=== PATIENT | male | born 1975 | race Caucasian/White ===

== ENCOUNTER 2019-02-25 23:51 | Emergency (ER) | payer OTHER ==
[~2019-02-25] VITALS: Ht 193 cm; Wt 108.9 kg
[2019-02-26 00:05] VITALS: BP 154/90
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
--- NOTE | 2019-02-26 00:05 | NUR ---
TO BED # 07 AMBULATORY
--- NOTE | 2019-02-26 00:19 | NUR ---
PT TAKEN TO XRAY
--- NOTE | 2019-02-26 00:25 | NUR ---
PT RETURN FROM XRAY
--- NOTE | 2019-02-26 00:35 | NUR ---
REPORT GIVEN FROM GELA COOK.
--- NOTE | 2019-02-26 00:35 | NUR ---
PT TAKEN TO XRAY
--- NOTE | 2019-02-26 00:41 | NUR ---
PT RETURNED FROM XRAY
--- NOTE | 2019-02-26 00:41 | NUR ---
Arianne sofia in ED - 02/26/19 at 0041 by CORDELL PT RETURN FROM CT
--- NOTE | 2019-02-26 00:41 | NUR ---
Arianne sofia in ED - 02/26/19 at 0043 by CORDELL PT RETURN FROM XRAY
--- NOTE | 2019-02-26 00:42 | NUR ---
DR VILLASEÑOR AT BEDSIDE
[2019-02-26] MEDS ORDERED: KETOROLAC 60 MG/2 ML VIAL IM ONE (00:45)
--- NOTE | 2019-02-26 01:14 | NUR ---
PAIN REEVALUATED AFTER TRAMADOL IM GIVEN. PT PAIN REDUCED FROM 8/10 TO 7/10 IN L SHOULDER. SLING PUT IN PLACE. PT RESTING AT BEDSIDE. RESPIRATIONS ARE EVEN AND UNLABORED. SKIN WARM AND DRY TO TOUCH. AT BEDSDIE.
[2019-02-26 01:17] VITALS: BP 152/87
--- NOTE | 2019-02-26 01:18 | NUR ---
Patient discharged with v/s stable. Written and verbal after care instructions given and explained. Patient alert, oriented and verbalized understanding of instructions. Ambulatory with steady gait. All questions addressed prior to discharge. ID band removed. Patient advised to follow up with PMD. Rx of MOTRIN 800MG, TRAMADOL 50MG given. Patient educated on indication of medication including possible reaction and side effects. Opportunity to ask questions provided and answered.
== END 2019-02-26 01:18 | disposition home or self-care (01) ==
LOC: MED 23:51
DX: S42.012A Anterior displaced fracture of sternal end of left clavicle, initial encounter for closed fracture (principal); R03.0 Elevated blood-pressure reading, without diagnosis of hypertension; V87.8XXA Person injured in other specified noncollision transport accidents involving motor vehicle (traffic), initial encounter; Y93.55 Activity, bike riding; Y92.89 Other specified places as the place of occurrence of the external cause; Y99.8 Other external cause status
CPT/HCPCS: 73000; 73030; 96372; 99283; J1885

== ENCOUNTER 2019-03-29 11:53 | Emergency (ER) | payer OTHER ==
[~2019-03-29] VITALS: Ht 193 cm; Wt 106.6 kg
[2019-03-29 12:58] VITALS: BP 120/76
--- NOTE | 2019-03-29 13:07 | NUR ---
WAIT AT LOBBY.
--- NOTE | 2019-03-29 14:10 | NUR ---
1ST CALL IN LOBBY
--- NOTE | 2019-03-29 14:48 | NUR ---
TO ED 07, AMBULATORY.
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
[2019-03-29] MEDS ORDERED: HYDROcodone/APAP 7.5/325 MG 1 TAB PO ONE (15:25)
[2019-03-29] MEDS ORDERED: KETOROLAC 60 MG/2 ML VIAL IM ONE (15:25)
--- NOTE | 2019-03-29 15:38 | NUR ---
GAVE MEDS PER MD ORDERS
--- NOTE | 2019-03-29 15:48 | NUR ---
PT STATES THAT PAIN HAS DECREASED SINCE PAIN MEDS HAVE BEEN GIVEN
[2019-03-29 15:52] VITALS: BP 120/76
--- NOTE | 2019-03-29 15:53 | NUR ---
Patient discharged with v/s stable. Written and verbal after care instructions given and explained. Patient alert, oriented and verbalized understanding of instructions. Ambulatory with steady gait. All questions addressed prior to discharge. ID band removed. Patient advised to follow up with PMD. Rx of TRAMADOL AND IBUPROFEN given. Patient educated on indication of medication including possible reaction and side effects. Opportunity to ask questions provided and answered.
== END 2019-03-29 15:53 | disposition home or self-care (01) ==
LOC: MED 11:53
DX: S22.32XA Fracture of one rib, left side, initial encounter for closed fracture (principal); F17.210 Nicotine dependence, cigarettes, uncomplicated; X58.XXXA Exposure to other specified factors, initial encounter; Y93.89 Activity, other specified; Y92.89 Other specified places as the place of occurrence of the external cause; Y99.8 Other external cause status
CPT/HCPCS: 71100; 73030; 96372; 99283; J1885

== ENCOUNTER 2022-10-30 00:45 | Emergency (ER) | payer MEDICAID, OTHER ==
[~2022-10-30] VITALS: Ht 193 cm; Wt 128.8 kg
[2022-10-30 01:34] VITALS: BP 139/86; PULSE 100; RESP 16; TEMP 98.2; O2SAT 96
[2022-10-30] MEDS ORDERED: AMOXIL/CLAVULANATE 875/125 MG 1 TAB PO ONE (03:20)
[2022-10-30] MEDS ORDERED: ACET-10509 PO (03:33)
[2022-10-30] MEDS ORDERED: CHLO473S62 PO (03:33)
[2022-10-30] MEDS ORDERED: AMOX1TAB8 PO (03:33)
[2022-10-30] MEDS ORDERED: IBUP-2213 PO (03:33)
[2022-10-30 03:55] VITALS: BP 139/86; PULSE 100; RESP 16; TEMP 98.2; O2SAT 96
== END 2022-10-30 03:55 | disposition home or self-care (01) ==
LOC: MED 00:45
DX: K04.7 Periapical abscess without sinus (principal); F17.290 Nicotine dependence, other tobacco product, uncomplicated; Z79.899 Other long term (current) drug therapy
CPT/HCPCS: 99283

== ENCOUNTER 2023-03-12 15:20 | Emergency (ER) | payer MEDICAID ==
[~2023-03-12] VITALS: Ht 193 cm; Wt 117.9 kg
[~2023-03-12 15:20] MED LIST: ACET-10509 PO; AMOX1TAB8 PO; CHLO473S62 PO; IBUP-2213 PO
[2023-03-12 15:27] VITALS: BP 119/82; PULSE 96; RESP 18; TEMP 98.5; O2SAT 96
[2023-03-12] MEDS ORDERED: AMOX1TAB8 PO (15:44)
[2023-03-12] MEDS ORDERED: ACET-8905 PO (15:45)
[2023-03-12] MEDS ORDERED: BENZ20GE11 MM (15:45)
[2023-03-12] MEDS ORDERED: CHLO473S62 PO (15:45)
== END 2023-03-12 16:02 | disposition home or self-care (01) ==
LOC: MED 15:20
DX: K04.7 Periapical abscess without sinus (principal); R03.0 Elevated blood-pressure reading, without diagnosis of hypertension; Z79.899 Other long term (current) drug therapy; Z79.2 Long term (current) use of antibiotics; Z79.1 Long term (current) use of non-steroidal anti-inflammatories (NSAID)
CPT/HCPCS: 99283